=== PATIENT | male | born 1965 | race African-American/Black ===

== ENCOUNTER 2017-04-16 15:08 | Emergency (ER) | payer OTHER ==
[~2017-04-16] VITALS: Ht 170.2 cm; Wt 68.2 kg
[2017-04-16 17:41] VITALS: BP 119/73
== END 2017-04-16 17:55 | disposition home or self-care (01) ==
LOC: EMS 15:11
DX: J40 Bronchitis, not specified as acute or chronic (principal); R03.0 Elevated blood-pressure reading, without diagnosis of hypertension
CPT/HCPCS: 99283

== ENCOUNTER 2023-08-10 10:53 | Emergency (ER) | payer OTHER ==
[~2023-08-10] VITALS: Ht 167.6 cm; Wt 63.6 kg
[2023-08-10 10:57] VITALS: BP 158/68; PULSE 68; RESP 14; TEMP 97.3
[2023-08-10] MEDS ORDERED: CORTSOL AD (11:39)
[2023-08-10] MEDS: NEOMYCIN/POLYMYXIN B/HYDROCORT 10 ML OTIC SOLUTION AD ONE (12:02)
== END 2023-08-10 12:21 | disposition home or self-care (01) ==
LOC: EMS 11:29
DX: H60.91 Unspecified otitis externa, right ear (principal)
CPT/HCPCS: 99283

== ENCOUNTER 2023-09-14 10:25 | Emergency (ER) | payer OTHER ==
[~2023-09-14] VITALS: Ht 162.6 cm; Wt 61.4 kg
[~2023-09-14 10:25] MED LIST: CORTSOL AD
[2023-09-14 10:40] VITALS: BP 139/71; PULSE 95; RESP 14; TEMP 97.8
[2023-09-14] MEDS: KETOROLAC TROMETHAMINE 60 MG/2 ML VIAL IM ONE (13:42)
== END 2023-09-14 14:26 | disposition home or self-care (01) ==
LOC: EMS 10:25
DX: M79.675 Pain in left toe(s) (principal); M13.872 Other specified arthritis, left ankle and foot
CPT/HCPCS: 99283; 73630; 96372; J1885

== ENCOUNTER 2025-03-23 10:51 | Emergency (ER) | payer OTHER ==
[~2025-03-23] VITALS: Ht 167.6 cm; Wt 70.5 kg
[2025-03-23 10:54] VITALS: TEMP 98.8
[2025-03-23 13:45] VITALS: BP 131/63; PULSE 76; RESP 19; O2SAT 99
[2025-03-23] MEDS ORDERED: CEPH-558 PO (14:22)
[2025-03-23] MEDS ORDERED: SULF1TAB94 PO (14:22)
== END 2025-03-23 15:20 | disposition home or self-care (01) ==
LOC: EMS 10:51
DX: L03.119 Cellulitis of unspecified part of limb (principal); Z88.7 Allergy status to serum and vaccine
CPT/HCPCS: 99283; Z7502

== ENCOUNTER 2025-04-09 13:09 | Emergency (ER) | payer OTHER ==
[~2025-04-09] VITALS: Ht 167.6 cm; Wt 70.5 kg
[~2025-04-09 13:09] MED LIST changes: +CEPH-558 PO; -CORTSOL AD; +SULF1TAB94 PO
[2025-04-09 13:20] VITALS: TEMP 98.6
[2025-04-09] MEDS: ACETAMINOPHEN 500 MG TABLET PO ONE (15:09)
[2025-04-09] MEDS: CEPHALEXIN MONOHYDRATE 500 MG CAPSULE PO ONE (15:12)
[2025-04-09] MEDS: BACITRACIN 0.9 GM PACKET OINTMENT TP ONE (15:13)
[2025-04-09 15:14] LABS: PLATELET COUNT (AUTO) 295 K/uL (150-450); RED BLOOD CELL COUNT(AUTO) 2.75 MIL/uL (4.50-5.90); RED CELL DISTRIBUTION WIDTH 23.4 % (11.5-14.5); WHITE BLOOD COUNT (AUTO) 6.5 K/uL (4.5-11.0)
[2025-04-09 15:26] LABS: CALCIUM, TOTAL 8.0 mg/dL (8.8-10.5); CREATININE 0.78 mg/dL (0.60-1.30); GLOMERULAR FILTR. RATE CALC > 60 mL/min (>60); GLUCOSE,RANDOM 107 mg/dL (70-110); SODIUM SERUM 137 mmol/L (136-145); UREA NITROGEN, BLOOD 12 mg/dL (7-18)
[2025-04-09 15:32] LABS: RBC MORPHOLOGY COMMENT ABNORMAL RBC MORPH
[2025-04-09 15:45] LABS: ERYTHROCYTE SEDIMENTATION RATE 1 MM/HR (0-20)
[2025-04-09] MEDS ORDERED: ACET-66 PO (16:48)
[2025-04-09] MEDS ORDERED: CEPH-558 PO (16:48)
[2025-04-09] MEDS ORDERED: BACI28.410 TP (16:48)
[2025-04-09 17:06] VITALS: BP 152/71; PULSE 79; RESP 18; O2SAT 99
== END 2025-04-09 17:07 | disposition home or self-care (01) ==
LOC: EMS 13:09
DX: S93.502A Unspecified sprain of left great toe, initial encounter (principal); L85.3 Xerosis cutis; Z79.899 Other long term (current) drug therapy; Z88.7 Allergy status to serum and vaccine; X58.XXXA Exposure to other specified factors, initial encounter; Y93.89 Activity, other specified; Y92.89 Other specified places as the place of occurrence of the external cause; Y99.8 Other external cause status
CPT/HCPCS: 80048; 85025; 85651; 99284